=== PATIENT | male | born 1995 | race Caucasian/White ===

== ENCOUNTER 2017-06-29 15:33 | Emergency (ER) | payer SELFPAY ==
[~2017-06-29] VITALS: Ht 177.8 cm; Wt 77.5 kg
[2017-06-29 15:35] VITALS: BP 136/75
== END 2017-06-29 16:53 | disposition home or self-care (01) ==
LOC: ED 16:45
DX: G56.22 Lesion of ulnar nerve, left upper limb (principal); Z95.2 Presence of prosthetic heart valve
CPT/HCPCS: 93005; 99283